=== PATIENT | female | born 1960 | race Hispanic/Latino ===

== ENCOUNTER 2024-08-12 01:53 | Emergency (ER) | payer SELFPAY ==
[~2024-08-12] VITALS: Ht 147.3 cm; Wt 54.4 kg
[~2024-08-12 01:53] MED LIST: KETO10TA2 PO; PRED20TA3 PO
--- NOTE | 2024-08-12 02:20 | ERN ---
General Chief Complaint: Upper Extremity Pain/Injury Stated Complaint: RT SHOULDER PAIN Time Seen by MD: 02:05 Source: patient History of Present Illness Initial Comments Patient is a 64-year-old female with right shoulder pain that radiates down to her right elbow. The pain is so much that she can not extend her right forearm. She is wearing a sling right now. She was seen a year ago for the exact same condition and she was treated with a steroid injection plus Toradol plus a course of oral steroids. She completed the course of treatment except for three or four pills. She comes back now with the same complaint. No fevers no chills no redness no swelling. No trauma Allergies: Coded Allergies: ciprofloxacin (Verified Allergy, Severe, 01/01/16) Home Meds Active Scripts Prednisone (Prednisone) 20 Mg Tablet, 1 TAB PO DAILY for 5 Days, #5 TAB 0 Refills Prov:ELMO AMADOR 10/07/23 Ketorolac Tromethamine (Ketorolac Tromethamine) 10 Mg Tablet, 10 MG PO BID for 5 Days, #10 TAB Prov:ELMO AMADOR 10/07/23 Past Medical History Past Medical History: No Pertinent History Past Surgical History: Cholecystectomy Constitutional: (-) chills, (-) diaphoresis, (-) fever, (-) malaise, (-) weakness, (-) other documentation EENTM: (-) eye pain, (-) blurred vision, (-) tearing, (-) double vision, (-) ear pain, (-) ear discharge, (-) nose pain, (-) nose congestion, (-) throat pain, (-) Throat swelling, (-) mouth pain, (-) tooth pain, (-) mouth swelling, (-) other documentation Respiratory: (-) cough, (-) orthopnea, (-) short of breath, (-) stridor, (-) wheezing, (-) other documentation Cardiovascular: (-) chest pain, (-) edema, (-) palpitations, (-) syncope, (-) dyspnea on exertion, (-) other documentation Gastrointestinal/Abdominal: (-) nausea, (-) vomiting, (-) diarrhea, (-) abdomin al pain, (-) abdominal distention, (-) constipation, (-) rectal bleeding, (-) dark stool/melena, (-) other documentation Musculoskeletal: (-) Neck pain, (-) back pain, (-) Flank Pain, (-) joint pain, (-) joint swelling, (-) muscle pain, (-) muscle stiffness, (-) gout, (-) other documentation Skin: (-) laceration, (-) contusion, (-) abrasion, (-) abscess, (-) rash, (-) change in color, (-) change in hair, (-) change in nails, (-) diaphoresis, (-) dryness, (-) other documentation Neuro: (-) altered mental status, (-) headache, (-) syncope, (-) paralysis, (-) numbness, (-) seizure, (-) pre-existing deficit, (-) tremors, (-) weakness, (-) dizziness, (-) slurred speech, (-) vertigo, (-) other documentation Physical Exam General Appearance: (+) moderate distress Orientation: (+) alert Neck: (+) normal inspection, (+) supple, (+) full range of motion, (+) non- tender Neck Comment Patient has no midline cervical tension or tenderness. She has no trapezius tenderness. Extremities Comment Taking the right arm out of the sling there are no signs of external trauma no bleeding no ecchymosis no swelling. Patient points to her medial border of her acetabulum as a place of maximum pain. There is no swelling of the elbow joint. The median nerve radial nerve and ulnar nerve are intact based on muscular function. She has good sensation in all dermatomes of her arm and hand. MDM I have a feeling the patient is back with the same arthritic complaints as a year ago. I will get an x-ray of her right shoulder and her right elbow more for documentation of arthritic changes. I will prescribe her ketorolac prednisone and she should follow up with her primary care provider. Plain films are negative. I will discharge the patient with pain medication and steroids. She needs to follow up with her primary care physician. ED Course Orders Procedure Category Date Status Time Elbow 2vws Rt RAD 08/12/24 Taken 02:13 Shoulder Comp 2+Vws Rt RAD 08/12/24 Taken 02:13 Ketorolac PHA 08/12/24 Complete Tromethamine 30mg/Ml 02:30 Cyclobenzaprine Hcl PHA 08/12/24 Complete (Cyclobenzaprine Hcl 02:30 Current Medications Medications (Trade) Dose Ordered Sig/Chantale Route PRN Reason Start Time Stop Time Status Last Admin Dose Admin Cyclobenzaprine HCl (Cyclobenzaprine HCl) 10 mg ONCE ONCE PO 08/12/24 02:30 08/12/24 02:31 DC 08/12/24 02:38 Ketorolac Tromethamine (toRADol) 30 mg ONCE ONCE IVP 08/12/24 02:30 08/12/24 02:31 DC 08/12/24 02:38 Vital Signs Date Time Temp Pulse Resp B/P (MAP) Pulse Ox O2 Delivery O2 Flow Rate FiO2 08/12/24 02:54 98.4 80 18 121/58 98 Room Air* 0 21 08/12/24 01:54 97.0 86 20 165/57 99 Room Air DX & DISP Disposition: Discharge Departure Impression: Primary Impression: Adhesive capsulitis Condition: Stable Scripts Ketorolac Tromethamine (Toradol) 10 Mg Tab 1 TAB PO TID for pain for 5 Days, #15 TAB 0 Refills Prov: KADE HINOJOSA MD 08/12/24 Prednisone (Prednisone) 50 Mg Tablet 50 MG PO DAILY for 5 Days, #5 TAB 0 Refills Prov: KADE HINOJOSA MD 08/12/24 Referrals: ELY MENJIVAR MD (PCP) KADE HINOJOSA MD Aug 12, 2024 02:20
[2024-08-12] MEDS: CYCLOBENZAPRINE HCL 10 MG TABLET PO ONE (02:38)
[2024-08-12] MEDS: ketOROlac 30MG VIAL (30MG/ML) IVP ONE (02:38)
[2024-08-12 02:54] VITALS: TEMP 98.4
[2024-08-12] MEDS ORDERED: KETO10 PO (03:39)
[2024-08-12] MEDS ORDERED: PRED50TA2 PO (03:39)
[2024-08-12 04:13] VITALS: BP 126/74; PULSE 78; RESP 16; O2SAT 98
--- NOTE | 2024-08-12 08:05 | HMCIMG ---
SHOULDER COMP 2+VWS RT HISTORY: Arthritic pain COMPARISON: None TECHNIQUE: 2 images of the right shoulder were obtained. FINDINGS: There is no acute displaced fracture or dislocation. Degenerative changes are seen. IMPRESSION: 1. Findings as described above.
--- NOTE | 2024-08-12 08:18 | HMCIMG ---
ELBOW 2VWS RT HISTORY: Arthritic pain COMPARISON: None TECHNIQUE: 3 images of the right elbow were obtained. FINDINGS: There is no acute displaced fracture or dislocation. Degenerative changes are seen. IMPRESSION: 1. Findings as described above.
== END 2024-08-12 04:15 | disposition home or self-care (01) ==
LOC: EDH 01:53
DX: M75.01 Adhesive capsulitis of right shoulder (principal); Z79.52 Long term (current) use of systemic steroids; Z88.1 Allergy status to other antibiotic agents; Z90.49 Acquired absence of other specified parts of digestive tract
CPT/HCPCS: 99284; 96374; 73070; 73030; J1885

== ENCOUNTER 2025-04-01 21:07 | Emergency (ER) | payer SELFPAY ==
[~2025-04-01] VITALS: Ht 152.4 cm; Wt 48.5 kg
[~2025-04-01 21:07] MED LIST changes: +KETO10 PO; +PRED50TA2 PO
[2025-04-01 21:11] VITALS: BP 147/63; PULSE 63; RESP 18; TEMP 98.4
--- NOTE | 2025-04-01 21:15 | ERN ---
ED Note History of Present Illness Stated Complaint: RIGHT UPPER ARM PAIN/NONTRAUMATIC Chief Complaint: Upper Extremity Pain/Injury Time Seen by MD: 21:10 Dictation: IN HIS A 65-YEAR-OLD FEMALE HERE WITH HER SISTER WITH COMPLAINTS OF CHRONIC RIGHT SHOULDER PAIN AND UPPER ARM PAIN SHE HAS HAD FOR MORE THAN ONE YEAR ON- CALL. SHE HAS BEEN TO SEE HER PRIMARY CARE DOCTOR AND HAS BEEN HERE SHE STATES ALL SHE EVER GETS A STEROIDS HAS NEVER BEEN REFERRED TO ORTHOPEDIC SURGEON. SHE DENIES ANY HISTORY OF TRAUMAS OR FALLS, NO SURGERY TO THE SHOULDER NO FEVER NO CHILLS. Allergies: Coded Allergies: ciprofloxacin (Verified Allergy, Severe, 01/01/16) Home Meds Active Scripts Ketorolac Tromethamine (Toradol) 10 Mg Tab, 1 TAB PO TID for pain for 5 Days, #15 TAB 0 Refills Prov:KADE HINOJOSA MD 08/12/24 Prednisone (Prednisone) 50 Mg Tablet, 50 MG PO DAILY for 5 Days, #5 TAB 0 Refills Prov:KADE HINOJOSA MD 08/12/24 Prednisone (Prednisone) 20 Mg Tablet, 1 TAB PO DAILY for 5 Days, #5 TAB 0 Refills Prov:ELMO AMADOR PAC 10/07/23 Ketorolac Tromethamine (Ketorolac Tromethamine) 10 Mg Tablet, 10 MG PO BID for 5 Days, #10 TAB Prov:ELMO AMADOR PAC 10/07/23 Past Medical History Past Medical History: No Pertinent History Surgical History: Cholecystectomy History: Not Applicable RN Note Reviewed/Agreed w/PFSH: Yes Review of System Dictation CONSTITUTIONAL: NEGATIVE EXCEPT FOR HPI HEAD/FACE: NEGATIVE EXCEPT FOR HPI EENT: NEGATIVE EXCEPT FOR HPI RESPIRATORY: NEGATIVE EXCEPT FOR HPI GASTROINTESTINAL/ABDOMINAL: NEGATIVE EXCEPT FOR HPI GENITOURINARY: NEGATIVE EXCEPT FOR HPI MUSCULOSKELETAL: NEGATIVE EXCEPT FOR HPI CHRONIC RIGHT SHOULDER PAIN GREATER THAN ONE YEAR INTEGUMENTARY: NEGATIVE EXCEPT FOR HPI NEUROLOGICAL/PSYCH: NEGATIVE EXCEPT FOR HPI HEMATOLOGIC/LYMPHATIC: NEGATIVE EXCEPT FOR HPI ALL SYSTEMS NEGATIVE, EXCEPT NOTED ABOVE. 13 POINT REVIEW OF SYSTEMS ASSESSED AND ALL NEGATIVE EXCEPT FOR ABOVE. Initial Vital Sign VS Vital Signs Date Time Temp Pulse Resp B/P (MAP) Pulse Ox O2 Delivery O2 Flow Rate FiO2 04/01/25 21:11 98.4 63 18 147/63 99 Room Air 0 Physical Exam Dictation VITAL SIGNS REVIEWED GENERAL APPEARANCE: ALERT, ORIENTED X 3, MODERATE ACUTE DISTRESS, WELL DEVELOPED, NOURISHED. HEAD AND FACE: NON-TRAUMATIC. EYES: PERRL, PINK CONJUNCTIVAS, EYELID NO TRAUMA, ANTERIOR CHAMBER WITH ARCUS SENILIS. EARS: PINNAS INTACT AND NO SIGNS OF TRAUMA OR ERYTHEMA EAR CANALS CLEAR AND NO DISCHARGE TM NO ERYTHEMA NOSE: NO DISCHARGE, NO BLEEDING. OROPHARYNX: MOUTH NORMAL, TONGUE PINK, PHARYNX CLEAR,NO ERYTHEMA, TONSILS NO EXUDATES, NO ABSCESSES NOTED, MUCOUS MEMBRANE MOIST NECK: SUPPLE, NON-TENDER, NO THYROMEGALY, NO MASSES, NO JVD, NO BRUITS BREAST:DEFERRED CHEST:NO TENDERNESS, NO CREPITUS, NO PARADOXICAL MOVEMENT, NO RETRACTIONS LUNGS:CLEAR, WELL-VENTILATED, SYMMETRIC, NO RALES, NO WHEEZING, NO RHONCHI, NO STRIDOR, GOOD BREATH SOUNDS BILATERALLY HEART: REGULAR RATE, REGULAR RHYTHM, NO MURMUR, NO GALLOPS VASCULAR: NO PERIPHERAL EDEMA, ABDOMEN: SOFT, POSITIVE BOWEL SOUNDS, NONDISTENDED, NO GUARDING, NONTENDER, NO REBOUND, NO MASSES NO HEPATOMEGALY, NO SPLENOMEGALY, NO OCHOA'S SIGN, NO HERNIAS. RECTAL: DEFERRED GENITAL: DEFERRED NEUROLOGICAL: NORMAL SPEECH, MOTOR FUNCTION INTACT, SENSORY FUNCTION INTACT MUSCULOSKELETAL: NECK NONTENDER, FULL RANGE OF MOTION, BACK NONTENDER, FULL RANGE OF MOTION, EXTREMITIES: DIFFUSE TENDERNESS TO RIGHT SHOULDER WITH PALPATION DECREASED RANGE OF MOTION SECONDARY TO PAIN POSITION OF COMFORT IS FLEXED INTERNALLY SKIN: COLOR PINK, DRY, NO TURGOR, NO RASH, NO LACERATIONS, NO ABRASIONS, NO CONTUSIONS. LYMPHATIC: DEFERRED Results (Laboratory/Radiology) Laboratory/Radiology 2135/RIGHT X-RAY DEMONSTRATES MILD DEGENERATIVE CHANGES ONLY Labs Reviewed?: Yes ED Course ED Course Orders Procedure Category Date Status Time Shoulder Comp 2+Vws Rt RAD 04/01/25 Taken 21:12 Hydrocodone/Apap PHA 04/01/25 Complete 5/325 ([place] 5/325mg) 21:30 Dexamethasone 4mg/Ml PHA 04/01/25 Complete 1ml Vial (Dexametha 21:30 Current Medications Medications (Trade) Dose Ordered Sig/Chantale Route PRN Reason Start Time Stop Time Status Last Admin Dose Admin Acetaminophen/ Hydrocodone Bitart (NORco 5/325MG) 1 tab ONCE ONCE PO 04/01/25 21:30 04/01/25 21:31 DC 04/01/25 21:29 Dexamethasone Sodium Phosphate (dexaMETHasone 4MG/ML 1ML VIAL) 8 mg ONCE ONCE IM 04/01/25 21:30 04/01/25 21:31 DC 04/01/25 21:29 Vital Signs Date Time Temp Pulse Resp B/P (MAP) Pulse Ox O2 Delivery O2 Flow Rate FiO2 04/01/25 21:11 98.4 63 18 147/63 99 Room Air 0 2135/PATIENT WILL BE DISCHARGED HOME WITH MEDROL DOSEPAK AND TYLENOL WITH CODEINE FOR SEVERE PAIN TOLD FOLLOW UP WITH THE ORTHOPEDIC SURGEON, REFERRED TO ; Medical Decision Making MDM MEDICAL DISCHARGE MAKING BASED ON EMPIRIC TREATMENT FOR CHRONIC RIGHT SHOULDER PAIN X-RAY SHOWS MINIMAL CHANGES ONLY PATIENT DISCHARGED HOME WITH MEDROL DOSEPAK AND TYLENOL NO. 3 FOR SEVERE PAIN PATIENT AND FAMILY INSTRUCTED TO CALL FOR FOLLOW UP DX & DISP Disposition: Discharge Departure Impression: Primary Impression: Chronic pain in right shoulder Additional Impression: DJD of right shoulder Condition: Stable Scripts Methylprednisolone (Medrol) 4 Mg Tab.ds.pk 1 TAB PO AD for 6 Days, #21 TAB 0 Refills 6 on day 1 then reduce by one tablet daily until gone Prov: ANTONIO MOJICA BOIL OFF MACHINE OPERATOR CLOTH 04/01/25 Acetaminophen with Codeine (Acetaminophen-Cod #3 Tablet) 300 Mg-30 Mg Tablet 1 TAB PO Q4H PRN for MODERATE TO SEVERE PAIN, #12 TAB 0 Refills Prov: ANTONIO MOJICA BOIL OFF MACHINE OPERATOR CLOTH 04/01/25 Additional Instructions: Follow-up with primary care provider in 1 to 2 days. Take medications as directed here in the emergency room. Okay to continue home medications unless otherwise discussed during your visit in the emergency room today. Return to your nearest emergency room if symptoms worsen or if there is no improvement. Call 911 if you need immediate assistance. Take Tylenol or Motrin [id number] as needed and if no contraindications are present. Increase oral hydration. A wound culture or urine culture was ordered here in the emergency room department please follow-up with primary care provider and advise them to get repeat ports from our facility. If you had any Steven wrap/splints that were applied here, please do not remove them until you see your primary care or specialty. Tylenol or ibuprofen [id number] as needed for mild pain. Take Tylenol with codeine for severe pain Take Medrol Dosepak as directed until gone. Call orthopedic surgeon for appointment tomorrow for follow up next week. Referrals: ZAID HARRIS DO (PCP) RUDI PADILLA MD Time of Disposition: 21:37 I have reviewed the case, and I agree with, Diagnosis and Plan ANTONIO MOJICA Apr 01, 2025 21:15
[2025-04-01] MEDS: HYDROcodone/APAP 5/325 1 TAB TABLET PO ONE (21:29)
[2025-04-01] MEDS ORDERED: ACET-2079 PO (21:38)
[2025-04-01] MEDS ORDERED: METH4TAB3 PO (21:38)
--- NOTE | 2025-04-01 22:01 | HMCIMG ---
EXAM: CR Right Shoulder, 2 views. CLINICAL HISTORY: Pain. COMPARISON: None provided. FINDINGS: No acute fracture or aggressive appearing osseous lesion. Mild osteoarthritis in the acromioclavicular and glenohumeral joint. The soft tissues are unremarkable. IMPRESSION: No acute bony abnormality is evident. Mild osteoarthritis. /[place]
== END 2025-04-01 22:00 | disposition home or self-care (01) ==
LOC: EDH 21:07
DX: M19.011 Primary osteoarthritis, right shoulder (principal); G89.29 Other chronic pain; M25.511 Pain in right shoulder; Z79.1 Long term (current) use of non-steroidal anti-inflammatories (NSAID); Z79.52 Long term (current) use of systemic steroids; Z88.1 Allergy status to other antibiotic agents; Z90.49 Acquired absence of other specified parts of digestive tract
CPT/HCPCS: 99283; 73030; 96372; J1100